=== PATIENT | male | born 1950 | race Caucasian/White ===

== ENCOUNTER 2017-06-24 07:58 | Outpatient (CLI) | payer OTHER ==
--- NOTE | 2017-06-24 12:46 | Ultrasound Report ---
DATE OF SERVICE: 06/24/2017 AORTA SCREEN: 06/24/2017 CLINICAL INDICATION: Hypertension. TECHNIQUE: Real-time sonographic vascular imaging was performed by the hull line crew member through the aorta utilizing both color-flow and Doppler spectral analysis. Multiple national account representative static images were saved for review. FINDINGS: The abdominal aorta is normal in caliber, measuring 1.9 cm proximally, 2.0 cm in the mid portion, and 1.6 cm distally. The iliacs are normal in caliber. No free fluid is present. IMPRESSION: NO EVIDENCE OF AN ABDOMINAL AORTIC ANEURYSM. TD: 06/24/2017 12:45
== END 2017-06-24 07:59 | disposition home or self-care (01) ==
LOC: DI 07:58
PROVIDERS: ATTEND Internal Medicine
DX: Z13.6 Encounter for screening for cardiovascular disorders (principal); I10 Essential (primary) hypertension
CPT/HCPCS: 76706

== ENCOUNTER 2017-10-03 09:19 | Outpatient (CLI) | payer OTHER, MEDICARE ==
--- NOTE | 2017-10-03 13:38 | CT Report ---
CT HEAD WITHOUT CONTRAST: 10/03/2017 CLINICAL INDICATION: Vertigo. TECHNIQUE: Axial CT images of the brain were obtained without intravenous contrast. COMPARISON: No previous CT is available for comparison. FINDINGS: The ventricles and sulci are normal in size, shape and configuration. The basilar cisterns are patent. There is no evidence of intracranial hemorrhage, mass effect, or midline shift. The visualized orbital contents and paranasal sinuses are unremarkable. IMPRESSION: NORMAL CT OF THE BRAIN WITHOUT CONTRAST. CT DOSE REDUCTION STATEMENT In accordance with CT protocol optimization, one or more of the following dose reduction techniques were utilized for this exam: automated exposure control, adjustment of mA and/or KV based on patient size, or use of iterative reconstructive technique. TD: 10/03/2017 11:13
== END 2017-10-03 09:20 | disposition home or self-care (01) ==
LOC: DI 09:19
PROVIDERS: ATTEND Internal Medicine
DX: H81.10 Benign paroxysmal vertigo, unspecified ear (principal)
CPT/HCPCS: 70450

== ENCOUNTER 2019-05-13 13:59 | Outpatient (CLI) | payer MEDICARE, OTHER ==
--- NOTE | 2019-05-13 14:37 | XRAY Report ---
Reason: ENCOUNTER FOR PREPROCEDURAL LABORATORY EXAMINATION Procedure Date: 05/13/2019 Accession Number: [id number] / [id number] Procedure: XR - Chest 2 View X-Ray CPT Code: 14466 Final Report FULL RESULT: EXAM: CHEST RADIOGRAPHY EXAM DATE: 05/13/2019 02:19 PM. CLINICAL HISTORY: Encounter for preprocedural laboratory examination. Preoperative examination for planned spinal surgery. Back pain. COMPARISON: None. TECHNIQUE: 2 views. FINDINGS: Lungs/Pleura: No focal opacities evident. No pleural effusion. No pneumothorax. Normal volumes. Mediastinum: Heart and mediastinal contours are unremarkable. Other: None. IMPRESSION: No acute cardiopulmonary abnormality. [facility]
== END 2019-05-13 14:00 | disposition home or self-care (01) ==
LOC: DI 13:59
PROVIDERS: ATTEND Orthopaedic Surgery Orthopaedic Surgery of the Spine
DX: Z01.812 Encounter for preprocedural laboratory examination (principal); M54.9 Dorsalgia, unspecified
CPT/HCPCS: 71046; 93005